=== PATIENT | male | born 1940 | race African-American/Black ===

== ENCOUNTER 2016-07-23 10:12 | Inpatient (IN) | payer OTHER ==
--- NOTE | 2016-07-23 11:41 | Emergency Department Report ---
Entered by ANDER MCGRATH, acting as scribe for MARY DE LEON NP. Chief Complaint: Weakness Stated Complaint: CONGESTION/NOT EATING Time Seen by Provider: 07/23/16 11:32 - HPI History of Present Illness: 76 year old male who is non-toxic, non ill appearing, in no acute distress presents from doctor's office with c/o sore throat x 4 days, described as too painful to eat or drink. Niece with \pt reports no PO food x 4 days. Denies N/V , chest pain, SOB, dizziness, syncope. - ROS Review of Systems: Reports sore throat, difficulty swallowing, no PO food. Denies N/V, chest pain, SOB, dizziness, syncope. - Exam Vital Signs: Vital Signs 07/23/16 11:12 Temperature 97.7 F Pulse Rate 104 H Respiratory 20 Rate Blood Pressure 185/120 O2 Sat by Pulse 98 Oximetry Physical Exam: Constitutional: Non toxic, NAD. ENT: Posterior pharynx grossly normal with no erythema or swelling. Uvula midline. No tonsilar swelling, erythema, or exudate. Neck: Adenopathy. Respiratory: No respirator distress. Lung sounds clear to auscultation bilaterally. No stridor. . MSE screening note: Focused history and physical exam performed. Due to findings the following was ordered: CBC, CMP, BNP ED Disposition for MSE Condition: Stable This documentation as recorded by the scribe,ANDER MCGRATH,accurately reflects the service I personally performed and the decisions made by ,MARY DE LEON, ROBINA.
[2016-07-23 11:55] LABS: Basophils % (Auto) 0.3 % (0.0-1.8); Eosinophils % (Auto) 0.7 % (0.0-4.3); Hematocrit 38.2 % (35.5-45.6); Hemoglobin 12.4 gm/dl (11.8-15.2); Mean Corpuscular HGB Conc 33 % (32-34); Mean Corpuscular Hemoglobin 26 pg (28-32); Mean Corpuscular Volume 81 fl (84-94); Platelet Count 294 K/mm3 (140-440); Red Blood Count 4.74 M/mm3 (3.65-5.03); Red Cell Distribution Width 14.2 % (13.2-15.2); White Blood Count 13.4 K/mm3 (4.5-11.0)
[2016-07-23 12:20] LABS: Albumin 4.2 g/dL (3.9-5); Albumin/Globulin Ratio 1.1 %; BUN/Creatinine Ratio 17.5; Bilirubin,Total 0.3 mg/dL (0.1-1.2); Calcium 10.1 mg/dL (8.4-10.2); Chloride 92.4 mmol/L (98-107); Potassium 5.2 mmol/L (3.6-5.0); Total Protein 8.1 g/dL (6.3-8.2)
[2016-07-23] MEDS ORDERED: NORMODYNE IV ONE (12:56)
[2016-07-23] MEDS ORDERED: NACL 0.9% 1000 ML 1,000 ML IV ONE (12:56)
--- NOTE | 2016-07-23 13:43 | Emergency Department Report ---
ED General Adult HPI - General Chief complaint: Weakness Stated complaint: CONGESTION/NOT EATING Time Seen by Provider: 07/23/16 12:36 Source: patient, family Mode of arrival: Wheelchair Limitations: Language Barrier - History of Present Illness Initial comments: 76-year-old male with a past medical history of diabetes, hypertension, and renal insufficiency presents to the hospital complaints of inability to swallow food or liquids for the past 4 days. Symptoms have been progressive. 2 months ago patient began having difficulty swallowing solid food and he required him to chew his food completely and eat slowly. Now for last 4 days patient can't even swallow liquids. He has been able to tolerate his medication although it takes him a while to swallow it. No previous history of esophageal issues. Patient denies pain to throat or fevers. Patient sent by Dr. Fountain for evaluation - Related Data Home Medications Medication Instructions Recorded Confirmed Last Taken Losartan/Hydrochlorothiazide 1 each PO DAILY 07/23/16 07/23/16 Unknown [Losartan-Hctz 50-12.5 mg Tab] amLODIPine [Norvasc] 5 mg PO DAILY 07/23/16 07/23/16 Unknown metFORMIN [Glucophage] 500 mg PO BID 07/23/16 07/23/16 Unknown Allergies Allergy/AdvReac Type Severity Reaction Status Date / Time No Known Allergies Allergy Unverified 07/23/16 11:12 ED Review of Systems ROS: Stated complaint: CONGESTION/NOT EATING Other details as noted in HPI Comment: All other systems reviewed and negative Other: Constitutional: No fevers chills Eyes: No eye pain visual changes ENT: No ear pain or throat pain Neck: Denies pain Respiratory: Denies shortness of breath Cardiovascular: Denies chest pain GI: Denies abdominal pain, nausea, vomiting, diarrhea : Denies dysuria Musculoskeletal: Denies back pain Skin: Denies rash Neurologic: Denies headache Psychiatric: Denies suicidal ideation ED Past Medical Hx - Past Medical History Previous Medical History?: Yes Hx Hypertension: Yes Hx Diabetes: Yes - Surgical History Past Surgical History?: No - Social History Smoking Status: Never Smoker Substance Use Type: Prescribed - Medications Home Medications: Home Medications Medication Instructions Recorded Confirmed Last Taken Type Losartan/Hydrochlorothiazide 1 each PO DAILY 07/23/16 07/23/16 Unknown History [Losartan-Hctz 50-12.5 mg Tab] amLODIPine [Norvasc] 5 mg PO DAILY 07/23/16 07/23/16 Unknown History metFORMIN [Glucophage] 500 mg PO BID 07/23/16 07/23/16 Unknown History ED Physical Exam - General Limitations: Language Barrier - Other Other exam information: General: No limitations, patient is alert in no acute distress Head exam: Atraumatic, normocephalic Eyes exam: Normal appearance, pupils equal reactive to light, extraocular movements intact ENT: Moist mucous membrane, normal oropharynx Neck exam: Normal inspection, full range of motion, no meningismus, questionable anterior thyroid mass. Fullness at the area of the thyroid without tenderness on palpation Respiratory exam: Clear to auscultation bilateral, no wheezes, rales, crackles Cardiovascular: Normal rate and rhythm, normal heart sounds Abdomen: Soft, nondistended, and nontender, with normal bowel sounds, no rebound, or guarding Extremity: Full range of motion normal inspection no deformity Back: Normal Inspection, full range of motion, no tenderness Neurologic: Alert, oriented x3, cranial nerves intact, no motor or sensory deficit Psychiatric: normal affect, normal mood Skin: Warm, dry, intact ED Course Vital Signs 07/23/16 11:12 Temperature 97.7 F Pulse Rate 104 H Respiratory 20 Rate Blood Pressure 185/120 O2 Sat by Pulse 98 Oximetry - Reevaluation(s) Reevaluation #1: 07/23/16 13:43 I gave patient some water to observe him swallowing it. Patient was able to swallow some of the water but it came up fairly quickly. Patient also not swallow his secretions and spitting instead. - Consultations Consultation #1: 07/23/16 14:[address] Neumann cash applications analyst physician with GI. Recommended nothing by mouth and will likely scope tomorrow 07/23/16 14:57 Dr. Neumann came to the ED to evaluate patient. He agrees that there may be a possible anterior neck mass and he will order a CT to evaluate ED Medical Decision Making - Lab Data Result diagrams: 07/23/16 11:40 07/23/16 11:40 Lab Results 07/23/16 07/23/16 07/23/16 Range/Units 11:06 11:40 11:40 WBC 13.4 H (4.5-11.0) K/mm3 RBC 4.74 (3.65-5.03) M/mm3 Hgb 12.4 (11.8-15.2) gm/dl Hct 38.2 (35.5-45.6) % MCV 81 L (84-94) fl MCH 26 L (28-32) pg MCHC 33 (32-34) % RDW 14.2 (13.2-15.2) % Plt Count 294 (140-440) K/mm3 Lymph % (Auto) 17.3 (13.4-35.0) % [place] % (Auto) 4.1 (0.0-7.3) % Eos % (Auto) 0.7 (0.0-4.3) % Baso % (Auto) 0.3 (0.0-1.8) % Lymph # 2.3 (1.2-5.4) K/mm3 [place] # 0.6 (0.0-0.8) K/mm3 Eos # 0.1 (0.0-0.4) K/mm3 Baso # 0.0 (0.0-0.1) K/mm3 Seg Neutrophils % 77.6 H (40.0-70.0) % Seg Neutrophils # 10.4 H (1.8-7.7) K/mm3 Sodium 134 L (137-145) mmol/L Potassium 5.2 H (3.6-5.0) mmol/L Chloride 92.4 L (98-107) mmol/L Carbon Dioxide 25 (22-30) mmol/L Anion Gap 22 mmol/L BUN 42 H (9-20) mg/dL Creatinine 2.4 H (0.8-1.5) mg/dL Estimated GFR 26 ml/min BUN/Creatinine Ratio 17.50 % Glucose 244 H (75-100) mg/dL POC Glucose 266 H (70-105) Calcium 10.1 (8.4-10.2) mg/dL Total Bilirubin 0.30 (0.1-1.2) mg/dL AST 40 (5-40) units/L ALT 42 (7-56) units/L Alkaline Phosphatase 155 H (35-129) units/L NT-Pro-B Natriuret Pep 315.8 (0-900) pg/mL Total Protein 8.1 (6.3-8.2) g/dL Albumin 4.2 (3.9-5) g/dL Albumin/Globulin Ratio 1.1 % - Radiology Data Radiology results: report reviewed (chest x-ray: Unremarkable) - Medical Decision Making Patient swelling and difficulty has been progressive for the last 2 months. Initially began with difficulty swallowing solids now patient cannot tolerate even liquid intake. Positive associated dehydration and renal sufficiency insufficiency. Family states history of renal insufficiency however, baseline creatinine is unknown. Labetalol ordered for elevated pressure and IV fluids initiated for dehydration. GI has been consulted. Patient requires admission to the hospital. Regular insulin ordered for mild hyperglycemia - Differential Diagnosis achalasia, esophageal stricture, dysphagia Critical Care Time: No Critical care attestation.: If time is entered above; I have spent that time in minutes in the direct care of this critically ill patient, excluding procedure time. ED Disposition Clinical Impression: Difficulty swallowing liquids, Uncontrolled hypertension, Renal insufficiency, Dehydration, Diabetes, Hyperkalemia Disposition: OP ADMITTED IP TO THIS HOSP Is pt being admited?: Yes Condition: Stable Time of Disposition: 13:45 (Dr Fontana/hosp)
--- NOTE | 2016-07-23 13:57 | Admit Criteria Form ---
Admission Criteria Documentation: HEAD AND NECK DISEASE [facility] Clinical Indications for Admission to Inpatient Care ( Place 'X' for any and all applicable criteria): Hospital admission is needed for appropriate care of the patient because of ANY ONE of the following (1)(2): [ ]I. Severe sinusitis as indicated by ANY ONE of the following (6)(13)(21) [ ]a) Suspected WARP TIER infection [ ]b) Bacteremia [ ]c) Hemodynamic instability [ ]d) Outpatient and observation care antibiotic treatment have failed or are not considered appropriate [ ]e) Surgical drainage needed that cannot be performed on an outpatient basis or observation. setting [ ]f) Suspected orbital involvement [ ]II. Acute glaucoma unresponsive to emergency treatment that requires medication or other treatment beyond the scope of observation care (1) [ ]III. Severe eye infection or inflammation (eg, uveitis) which is unresponsive to emergency treatment and requires medication or other treatment beyond the scope of observation care (1)(2)(3)(4) [ ]IV. Severe epistaxis requiring posterior packing (5)(6) [ ]V. Acute bacterial labyrinthitis(6)(7) [ ]. Viral labyrinthitis with symptoms uncontrollable on an outpatient or observation care basis (6)(7) [ ]VII. Severe necrotizing external otitis unresponsive to outpatient and observation care treatment(6) [ ]VIII. Otitis media requiring treatment beyond the scope of outpatient and observation care, as indicated by presence or persistence of ANY ONE of the following(6)(8)(9): [ ]a) Hemodynamic instability [ ]b) Mastoiditis [ ]c) Suspected WARP TIER infection [ ]d) Bacteremia [ ]e) Surgical drainage needed that cannot be performed as an outpatient. or in an observation setting. [ ]IX. Epiglottitis or supraglottitis(6)(11)(12)(13)(14) [ ]X. Stridor or laryngospasm (unresponsive to emergency management) (6)(11)( 12)(13)(14) [ ]XI. Acute pharyngitis or tonsillitis and ANY ONE of the following (14)(15)( 16): [ ]a) Hemodynamic instability remaining after emergency or observation level care (as appropriate) [ ]b) Surgical drainage needed that cannot be performed in outpatient or observation setting [ ]c) Mediastinitis [ ]d) Thrombophlebitis of internal jugular vein (Lemierre syndrome) [ ]XII. Sialoadenitis and ANY ONE of the following (17) (18) [ ]a) Hemodynamic instability remaining after emergency or observation level care(as appropriate) [ ]b) Surgical drainage needed that cannot be performed in outpatient or observation setting [X]XIII. Airway blockage or inability to swallow (6)(12)(19)(20) [ ]XIV.Complicated infection indicated by ANY ONE of the following(6)(13)(21)(22 ): [ ]a) Abscess or swelling causing airway difficulty(12) [ ]b) Bacteremia [ ]c) Hemodynamic instability [ ]d) Suspected WARP TIER infection [ ]e) Outpatient and observation care antibiotic treatment have failed or are not considered appropriate [ ]f) Surgical drainage needed that cannot be performed on an outpatient basis or observation setting [ ]g) Other management need that cannot be performed in outpatient or observation setting: [ ]XV. Severe trauma requiring inpatient medical treatment of eye, head, pharynx, or airway (1)(23)(24)[phone]) [ ]XVI. Ischemic optic neuropathy(11) [ ]XVII.Head or Neck Disease condition and ANY ONE of the following: [ ]a) Symptom or finding for which emergency and observation care have failed or are not considered appropriate (Also use General Criteria: Observation Care as appropriate) [ ]b) Presence of ANY ONE of the following: [ ]i) A General Admission Criteria [ ]ii) A Pediatric General Admission Criteria The original [email or web address] content created by [facility] has been revised. The portions of the content which have been revised are identified through the use of italic text or in bold, and [facility] has neither reviewed nor approved the modified material. All other unmodified content is copyright [facility]. Please see references footnoted in the original [facility] edition 2016 Admission Criteria Met: Yes
--- NOTE | 2016-07-23 14:14 | XRay Report ---
AP CHEST: HISTORY: Difficulty swallowing AP view of the chest demonstrates a normal mediastinal and cardiac contour with clear lungs and normal bony and soft tissue structures. IMPRESSION: Unremarkable AP chest.
[2016-07-23] MEDS ORDERED: TYLENOL PO PRN (14:53)
[2016-07-23] MEDS ORDERED: DULCOLAX PR PRN (14:53)
[2016-07-23] MEDS ORDERED: ZOFRAN IV PRN (14:53)
[2016-07-23] MEDS ORDERED: DILAUDID IV PRN (14:53)
[2016-07-23] MEDS ORDERED: MILK OF MAGNESIA PO PRN (14:53)
[2016-07-23] MEDS ORDERED: NON-FORMULARY (Losartan/Hydrochlorothiazide [Losartan-Hctz 50-12.5 Mg Tab] 1 EACH) PO SCH (15:00)
--- NOTE | 2016-07-23 15:09 | Gastroenterology Consultation ---
History of Present Illness - Reason for Consult Consult date: 07/23/16 Dysphagia Requesting physician: DEVEN TAYLOR - History of Present Illness The patient is a 76 yo [place] male admitted with a progressive 3 month hx of dysphagia (hx through family who translate for the patient). He says for the last 4 days he is unable swallow more than a tiny sip of fluid. He has had no SOB or chest pain. He is not a former smoker. He has no hx of neck or chest surgery. He is unable to swallow pills and the family thinks he has lost over 20 pounds. He has no blood in the stools. Denies abdominal pain; family says prior kidney surgery, but there is an incision over the urinary bladder. Past History Past Medical History: other (HTN) Past Surgical History: Other (Unknown "kidney" (?Bladder) surgery) Social history: no significant social history, lives with family. denies: smoking Family history: no significant family history Medications and Allergies Allergies Allergy/AdvReac Type Severity Reaction Status Date / Time No Known Allergies Allergy Unverified 07/23/16 11:12 Home Medications Medication Instructions Recorded Confirmed Last Taken Type Losartan/Hydrochlorothiazide 1 each PO DAILY 07/23/16 07/23/16 Unknown History [Losartan-Hctz 50-12.5 mg Tab] amLODIPine [Norvasc] 5 mg PO DAILY 07/23/16 07/23/16 Unknown History metFORMIN [Glucophage] 500 mg PO BID 07/23/16 07/23/16 Unknown History Active Meds: Active Medications Acetaminophen (Tylenol) 650 mg PO Q4H PRN PRN Reason: Pain MILD(1-3)/Fever >100.5/RED Amlodipine Besylate (Norvasc) 5 mg PO DAILY ELEANOR Bisacodyl (Dulcolax) 10 mg [place] QDAY PRN PRN Reason: Constipation unrelieved by MOM Hydromorphone HCl (Dilaudid) 0.5 mg IV Q3H PRN PRN Reason: Pain , Severe (7-10) Sodium Chloride (Nacl 0.9% 1000 Ml) 1,000 mls @ 250 mls/hr IV ONCE ONE Stop: 07/23/16 16:55 Last Admin: 07/23/16 13:42 Dose: 250 mls/hr Dextrose/Sodium Chloride (D5ns) 1,000 mls @ 75 mls/hr IV DIRECT ELEANOR Pantoprazole Sodium 80 mg/ (Sodium Chloride) 100 mls @ 10 mls/hr IV Q10H ELEANOR PRN Reason: 8 MG/HR Magnesium Hydroxide (Milk Of Magnesia) 30 ml PO Q4H PRN PRN Reason: Constipation Miscellaneous Medication (Losartan/Hydrochlorothiazide [Losartan-Hctz 50-12.5 Mg Tab]) 1 each PO DAILY ELEANOR Ondansetron HCl (Zofran) 4 mg IV Q3H PRN PRN Reason: N/V unrelieved by Reglan Review of Systems - Review of Systems All systems: negative (as noted in the HPI) Exam - Constitutional Vital Signs: Temp Pulse Resp BP Pulse Ox 97.7 F 104 H 20 185/120 98 07/23/16 11:12 07/23/16 11:12 07/23/16 11:12 07/23/16 11:12 07/23/16 11:12 General appearance: no acute distress - EENT Eyes: PERRL, EOM intact ENT: hearing intact, clear oral mucosa, poor dentition, no thrush - Neck Neck: other (Large mass R neck extending to R carotid area. Firm and nontender. No fluctuance. Appears independent of the trachea.) - Respiratory Respiratory effort: normal Respiratory: bilateral: CTA - Cardiovascular Rhythm: regular Heart Sounds: Present: S1 & S2 Extremities: no ischemia, No edema - Gastrointestinal General gastrointestinal: Present: soft, non-tender, non-distended - Genitourinary Male Genitourinary: other (Small vertical scar over urinary bladder) - Integumentary Integumentary: Present: clear, warm, dry - Neurologic Neurological: other (Nonfocal but difficult to assess due to language barrier. No R facial droop.) - Labs CBC & Chem 7: 07/23/16 11:40 07/23/16 11:40 Assessment and Plan - Patient Problems (1) Palpable mass of neck Current Visit: Yes Status: Acute Plan to address problem: - Almost certainly a thyroid or thymic cancer. H/N cancer would also be possible. - No obvious compromise of the airway (no dysphonia, no wheezing) but suspect severe compression on the retrolaryngeal esophagus. - Patient able to control secretions and very small sips of liquid. - Will attempt biopsy of lesion today, and get a CT of the chest when renal function improved with hydration. - The patient will likely need an endoscopic or surgical placement of a PEG tube , but will wait on the scan to determine. (2) Malnutrition Current Visit: Yes Status: Acute Plan to address problem: - Consult nutrition services for possible PPN for 1-4 days while w/u of neck mass and possible PEG tube is determined.
[2016-07-23 17:21] LABS: INR 1.04 (0.87-1.13); Partial Thromboplastin Time 29.8 Sec. (24.2-36.6)
[2016-07-23] MEDS: PROTONIX 80 MG in NACL 0.9% 100 ML IV SCH (17:26)
[2016-07-23] MEDS: NORVASC PO SCH (18:00)
[2016-07-23] MEDS: HCTZ PO SCH (18:01)
[2016-07-23] MEDS: COZAAR PO SCH (18:01)
[2016-07-23] MEDS: D5NS 1,000 ML IV SCH (19:32)
[2016-07-23] MEDS: NOVOLOG SUB-Q SCH (22:16)
[2016-07-24 04:59] LABS: Basophils % (Auto) 0.3 % (0.0-1.8); Eosinophils % (Auto) 0.7 % (0.0-4.3); Hematocrit 33.7 % (35.5-45.6); Hemoglobin 11.1 gm/dl (11.8-15.2); Mean Corpuscular HGB Conc 33 % (32-34); Mean Corpuscular Hemoglobin 26 pg (28-32); Mean Corpuscular Volume 79 fl (84-94); Platelet Count 224 K/mm3 (140-440); Red Blood Count 4.24 M/mm3 (3.65-5.03); Red Cell Distribution Width 14.1 % (13.2-15.2)
[2016-07-24 05:09] LABS: BUN/Creatinine Ratio 14.34; Calcium 8.5 mg/dL (8.4-10.2); Magnesium 1.9 mg/dL (1.7-2.3); Phosphorous 3.6 mg/dL (2.5-4.5)
[2016-07-24 05:10] LABS: Chloride 97.1 mmol/L (98-107); Potassium 4.3 mmol/L (3.6-5.0)
[2016-07-24] MEDS: D5NS 1,000 ML IV SCH (06:31)
--- NOTE | 2016-07-24 08:02 | Event Note ---
Date: 07/23/16 See H/p in reports Dysphagia-possible Esophageal stricture HTN T2DM Acute renal failure Hyperkalemia-mild
[2016-07-24] MEDS: NOVOLOG SUB-Q SCH ×4 (08:22→23:14)
--- NOTE | 2016-07-24 08:50 | Consultation ---
History of Present Illness - Reason for Consult Consult date: 07/24/16 acute renal failure, hyperkalemia - History of Present Illness Patient is a 76-year-old [place] male with medical history significant for Type 2 DM, Hypertension, and renal insufficiency presents to the ER with one week h/o inability to swallow food or liquids. Patient is unable to speak at this time and history was obtained from his niece and previous documentation. Symptoms started about 2 months and progressive. Initially he had difficulty swallowing solid foods and for the past week he can't even swallow liquids. No prior similar history. Initial labs showed creatinine of 2.4 and potassium of 5.2. Baseline creatinine is unknown. Past History Past Medical History: diabetes, hypertension Past Surgical History: Other (Unknown "kidney" (?Bladder) surgery) Social history: no significant social history, lives with family. denies: smoking Family history: no significant family history Medications and Allergies Allergies Allergy/AdvReac Type Severity Reaction Status Date / Time No Known Allergies Allergy Unverified 07/23/16 11:12 Home Medications Medication Instructions Recorded Confirmed Last Taken Type Losartan/Hydrochlorothiazide 1 each PO DAILY 07/23/16 07/23/16 Unknown History [Losartan-Hctz 50-12.5 mg Tab] amLODIPine [Norvasc] 5 mg PO DAILY 07/23/16 07/23/16 Unknown History metFORMIN [Glucophage] 500 mg PO BID 07/23/16 07/23/16 Unknown History Active Meds: Active Medications Acetaminophen (Tylenol) 650 mg PO Q4H PRN PRN Reason: Pain MILD(1-3)/Fever >100.5/RED Amlodipine Besylate (Norvasc) 5 mg PO DAILY [facility] Last Admin: 07/23/16 18:00 Dose: 5 mg Bisacodyl (Dulcolax) 10 mg [place] QDAY PRN PRN Reason: Constipation unrelieved by MOM Hydrochlorothiazide (Hctz) 12.5 mg PO QDAY [facility] Last Admin: 07/23/16 18:01 Dose: 12.5 mg Hydromorphone HCl (Dilaudid) 0.5 mg IV Q3H PRN PRN Reason: Pain , Severe (7-10) Pantoprazole Sodium 80 mg/ (Sodium Chloride) 100 mls @ 10 mls/hr IV DIRECT [facility] PRN Reason: 8 MG/HR Last Admin: 07/23/16 17:26 Dose: 8 mg/hr, 10 mls/hr Sodium Chloride (Nacl 0.9% 1000 Ml) 1,000 mls @ 75 mls/hr IV DIRECT ELEANOR Insulin Aspart (Novolog) 0 units SUB-Q ACHS ELEANOR PRN Reason: Protocol Last Admin: 07/24/16 08:22 Dose: 3 units Losartan Potassium (Cozaar) 50 mg PO QDAY ELEANOR Last Admin: 07/23/16 18:01 Dose: 50 mg Magnesium Hydroxide (Milk Of Magnesia) 30 ml PO Q4H PRN PRN Reason: Constipation Ondansetron HCl (Zofran) 4 mg IV Q3H PRN PRN Reason: N/V unrelieved by Reglan Review of Systems ROS unobtainable: due to mental status Exam - Vital Signs Vital signs: Vital Signs Temp Pulse Resp BP Pulse Ox 97.7 F 104 H 20 185/120 98 07/23/16 11:12 07/23/16 11:12 07/23/16 11:12 07/23/16 11:12 07/23/16 11:12 - General Appearance General appearance: well-developed, appears stated age, other (somnolent) EENT: ATNC, PERRL, hearing intact Neck: Present: Other (anterior neck swelling, firm) Respiratory: Clear to Ascultation Heart: regular, S1S2, no murmurs Gastrointestinal: Present: normoactive bowel sounds, obese. Absent: tenderness , distended Integumentary: no rash Neurologic: other (patient is lethargic to follow any command) Musculoskeletal: Present: other (no edema) Results - Lab Results 07/26/16 05:06 07/26/16 05:06 Most recent lab results Calcium 8.5 mg/dL (8.4-10.2) D 07/24/16 04:22 Phosphorus 3.60 mg/dL (2.5-4.5) 07/24/16 04:22 Magnesium 1.90 mg/dL (1.7-2.3) 07/24/16 04:22 Assessment and Plan - Patient Problems (1) TONEY (acute kidney injury) Current Visit: Yes Status: Acute Plan to address problem: Acute Kidney Injury superimposed on CKD in the setting of volume depletion. Continue IV fluids and monitor renal function. Renal US. (2) Hyperkalemia Current Visit: Yes Status: Acute Plan to address problem: Hyperkalemia in the setting of TONEY. Improved. (3) Palpable mass of neck Current Visit: Yes Status: Acute (4) Uncontrolled hypertension Current Visit: Yes Status: Acute Plan to address problem: Monitor. Patient is unable to swallow any pills.
--- NOTE | 2016-07-24 08:51 | Progress Note ---
Assessment and Plan Assessment and plan: Dysphagia. He was evaluated by yesterday. Acute kidney injury. His creatinine is 2.3 today. Nephrology consulted. Hypertension. BP stable. Diabetes mellitus type 2. Fingerstick glucose before every meal and at bedtime. Neck mass, likely thyroid. Biopsy today Liver masses. Will consult Oncology Full CODE STATUS History Interval history: Difficulty swallowing Hospitalist Physical - Physical exam Narrative exam: Gen appearance: Not in acute distress, ill looking Neck: neck mass HEENT: Normocephalic, atraumatic Lungs : Clear to auscultation bilaterally,no crackles or wheeze Heart :S1-S2 regular, no murmurs, rubs or gallop Abdomen: soft, non tender, non-distended,normal bowel sounds Extremities:no edema no clubbing or cyanosis, Neuro: Awake, alert - Constitutional Vitals: Temp Pulse Resp BP Pulse Ox 98.2 F 95 H 18 192/91 97 07/24/16 00:10 07/24/16 00:10 07/24/16 00:10 07/24/16 00:10 07/24/16 00:10 Results - Labs CBC & Chem 7: 07/24/16 04:22 07/24/16 04:22 Labs: Laboratory Last Values WBC 9.0 K/mm3 (4.5-11.0) 07/24/16 04:22 RBC 4.24 M/mm3 (3.65-5.03) 07/24/16 04:22 Hgb 11.1 gm/dl (11.8-15.2) L 07/24/16 04:22 Hct 33.7 % (35.5-45.6) L 07/24/16 04:22 MCV 79 fl (84-94) L 07/24/16 04:22 MCH 26 pg (28-32) L 07/24/16 04:22 MCHC 33 % (32-34) 07/24/16 04:22 RDW 14.1 % (13.2-15.2) 07/24/16 04:22 Plt Count 224 K/mm3 (140-440) 07/24/16 04:22 Lymph % (Auto) 12.4 % (13.4-35.0) L 07/24/16 04:22 [place] % (Auto) 6.2 % (0.0-7.3) 07/24/16 04:22 Eos % (Auto) 0.7 % (0.0-4.3) 07/24/16 04:22 Baso % (Auto) 0.3 % (0.0-1.8) 07/24/16 04:22 Lymph # 1.1 K/mm3 (1.2-5.4) L 07/24/16 04:22 [place] # 0.6 K/mm3 (0.0-0.8) 07/24/16 04:22 Eos # 0.1 K/mm3 (0.0-0.4) 07/24/16 04:22 Baso # 0.0 K/mm3 (0.0-0.1) 07/24/16 04:22 Seg Neutrophils % 80.4 % (40.0-70.0) H 07/24/16 04:22 Seg Neutrophils # 7.3 K/mm3 (1.8-7.7) 07/24/16 04:22 PT 13.5 Sec. (12.2-14.9) 07/23/16 16:34 INR 1.04 (0.87-1.13) 07/23/16 16:34 APTT 29.8 Sec. (24.2-36.6) 07/23/16 16:34 Sodium 135 mmol/L (137-145) L 07/24/16 04:22 Potassium 4.3 mmol/L (3.6-5.0) 07/24/16 04:22 Chloride 97.1 mmol/L (98-107) L 07/24/16 04:22 Carbon Dioxide 22 mmol/L (22-30) 07/24/16 04:22 Anion Gap 20 mmol/L 07/24/16 04:22 BUN 33 mg/dL (9-20) H 07/24/16 04:22 Creatinine 2.3 mg/dL (0.8-1.5) H 07/24/16 04:22 Estimated GFR 28 ml/min 07/24/16 04:22 BUN/Creatinine Ratio 14.34 % 07/24/16 04:22 Glucose 186 mg/dL (75-100) H 07/24/16 04:22 POC Glucose 219 (70-105) H 07/24/16 06:10 Calcium 8.5 mg/dL (8.4-10.2) D 07/24/16 04:22 Phosphorus 3.60 mg/dL (2.5-4.5) 07/24/16 04:22 Magnesium 1.90 mg/dL (1.7-2.3) 07/24/16 04:22 Total Bilirubin 0.30 mg/dL (0.1-1.2) 07/23/16 11:40 AST 40 units/L (5-40) 07/23/16 11:40 ALT 42 units/L (7-56) 07/23/16 11:40 Alkaline Phosphatase 155 units/L (35-129) H 07/23/16 11:40 NT-Pro-B Natriuret Pep 315.8 pg/mL (0-900) 07/23/16 11:40 Total Protein 8.1 g/dL (6.3-8.2) 07/23/16 11:40 Albumin 4.2 g/dL (3.9-5) 07/23/16 11:40 Albumin/Globulin Ratio 1.1 % 07/23/16 11:40 TSH 1.200 mlU/mL (0.270-4.200) 07/24/16 04:22
[2016-07-24] MEDS: PROTONIX 80 MG in NACL 0.9% 100 ML IV SCH (09:07)
[2016-07-24] MEDS: NACL 0.9% 1000 ML 1,000 ML IV SCH (09:10)
--- NOTE | 2016-07-24 10:00 | History and Physical Report ---
CHIEF COMPLAINT: Difficulty swallowing food for the past 4 days. HISTORY OF PRESENT ILLNESS: This 76-year-old with past medical history of diabetes, hypertension, renal insufficiency who presents with difficulty swallowing food. The patient's symptoms have improved slowly with progressive feeds.. The patient has difficulty with swallowing foods and requires to chew his food completely and eats slowly. Over the past 4 days, he cannot even swallow liquids. Liquids are able to pass without any difficulty. PAST MEDICAL HISTORY: Significant for hypertension and diabetes. CURRENT MEDICATIONS: Losartan 50/12.5 once a day, amlodipine 5 mg once a day, metformin 500 twice a day. PAST SURGICAL HISTORY: None. SOCIAL HISTORY: He does not smoke. No alcohol, no recreational drugs. FAMILY HISTORY: Significant for hypertension. REVIEW OF SYSTEMS: CONSTITUTIONAL: No fever, no chills, no weight loss, no weight gain. HEENT: No sore throat, no postnasal drip. CARDIOVASCULAR AND RESPIRATORY: No shortness of breath, no chest pain, no palpitations. No cough. GASTROINTESTINAL: Difficulty swallowing present. No abdominal pain. No vomiting, no diarrhea. GENITOURINARY: No dysuria. MUSCULOSKELETAL: No joint pains, no back pain, no muscle pains. CENTRAL NERVOUS SYSTEM: No syncope, no seizures. SKIN: No rashes. PSYCHIATRIC: No suicidal ideation and depression, etc. HEMATOLOGIC AND LYMPHATIC: No easy bruising. A 14-point review of systems is done. PHYSICAL EXAMINATION: GENERAL: Elderly male lying in bed comfortably. VITAL SIGNS: Blood pressure is 185/120, temperature is 97.7, pulse is 104, respirations are 20. HEENT: Unremarkable. Pupils equal and reactive. NECK: Supple, no lymphadenopathy, no thyromegaly. LUNGS: Clear to auscultation and percussion. Good air entry. CARDIOVASCULAR: S1, S2 heard. No gallop, no murmur, no rub. Apical impulse in left fifth intercostal space and midclavicular line. ABDOMEN: Soft and benign. No hepatosplenomegaly. No guarding, no rigidity. Hernial orifices are normal. EXTREMITIES: Good pedal pulses. No pedal edema. CENTRAL NERVOUS SYSTEM: Alert and oriented x 4, nonfocal exam. LABORATORY DATA: BUN and creatinine 42 and 2.4, potassium is 5.2, sodium is 134. White count is 13.4, glucose is 266, 146, and 257. Alkaline phosphatase is 155. ASSESSMENT AND PLAN: 1. Severe dysphagia, the patient with possible esophageal stricture. We will put him on clear liquids for the time being. GI consulted. Dr. Neumann was consulted. IV Protonix is initiated. 2. Hypertension. Continue losartan. 3. Type 2 diabetes mellitus coverage for the time being. Metformin is the last pill may not be able to swallow it. 4. Renal insufficiency, can be secondary to dehydration. IV fluids for the time being and Nephrology consult requested. 5. Acute renal failure secondary to volume depletion. 6. Deep venous thrombosis prophylaxis, Lovenox 40 mg subcutaneous daily. JOB# [id number] MAKAYLA/STEPHANIE
[2016-07-24] MEDS: HCTZ PO SCH (10:17)
[2016-07-24] MEDS: COZAAR PO SCH (10:17)
[2016-07-24] MEDS: NORVASC PO SCH (10:17)
--- NOTE | 2016-07-24 11:12 | Cat Scan Report ---
CT chest without contrast: History: Neck mass; difficulty swallowing/breathing. Unenhanced images are obtained from the low neck into the upper abdomen. Coronal and sagittal 2-D reformatted images included. There is a large right neck mass containing a large chunky calcification. The mass appears to lie within the right thyroid lobe measuring approximately 4.6 cm. The trachea and esophagus are displaced to the left. The trachea is compressed by the mass. Possible compression of the esophagus cannot be evaluated without contrast. The left thyroid lobe appears grossly normal. There is a 13 mm right paratracheal lymph node and a few smaller shotty lymph nodes in the pretracheal region. There is coronary vascular calcification. The airway below the neck mass is patent and in normal position. The thoracic aorta is normal in size and contour. There appears to be linear areas of compressed lung in both lower lobes. There are small bilateral effusions slightly larger on the right than left. There are no pulmonary nodules in the pleural surfaces otherwise appear generally unremarkable. Sections carried into the upper abdomen demonstrate multiple hypodensities in the right lobe of the liver. The largest is noted centrally measure approximately 5.6 cm. There is mild inhomogeneity of a portion of the left lobe of the liver near the falciform ligament. No other significant findings. Impression: 1. Large right neck mass most consistent with a fibroid etiology. Compression of trachea and possible esophagus. 2. Mild mediastinal adenopathy. Bilateral pleural effusions 3. Multiple liver masses which are suspicious. Recommendation: Further evaluation of the neck mass, liver, abdomen.
--- NOTE | 2016-07-24 13:01 | Procedure Note ---
Date of procedure: 07/24/16 Pre-op diagnosis: rt thyroid mass Post-op diagnosis: same Procedure: bx Findings: solid tissue Anesthesia: local Surgeon: JANA REESE Estimated blood loss: none Pathology: list (thyroid) Specimen disposition: to lab Condition: stable Disposition: floor
--- NOTE | 2016-07-24 13:03 | Ultrasound Report ---
Ultrasound guided right thyroid biopsy: Large right thyroid mass. The skin was cleansed and 1% lidocaine used for local anesthesia. An ultrasound guided sampling was obtained initially with a 25-gauge aspiration followed by a Rotex biopsy. The attending pathologist indicated adequate sampling had been obtained. The patient was discharged to his room. No complication encountered.
--- NOTE | 2016-07-24 14:48 | Ultrasound Report ---
Renal ultrasound: Acute renal failure. Neither kidney is well visualized. The approximate length of the right kidney is 8.6 cm and the length of the left kidney is 8.8 cm. Both kidneys are markedly echogenic. There is a 6.5 mm cyst in the inferior pole of the left kidney and a 5 mm cyst in the superior right kidney. There is no hydronephrosis and no solid mass identified. Imaging of the urinary bladder demonstrates questionable mild irregularity of the posterior bladder wall. Impression: 1. Markedly echogenic kidneys consistent with medical renal disease. 2. Questionably abnormal bladder mucosa.
--- NOTE | 2016-07-24 15:58 | Gastroenterology Progress Note ---
Assessment and Plan - Patient Problems (1) Dehydration Current Visit: Yes Status: Acute (2) Diabetes Current Visit: Yes Status: Acute Qualifiers: Diabetes mellitus type: D Diabetes mellitus complication status: D Diabetes mellitus complication detail: D Diabetic retinopathy severity: D Proliferative retinopathy type: P Diabetes mellitus macular edema: D Diabetes mellitus shelter insulin use: D Laterality: L Chronic kidney disease stage: C (3) Difficulty swallowing liquids Current Visit: Yes Status: Acute Plan to address problem: Will need PEG, probably surgical PEG along with trach as the neck mass is deviating both the trachea and esophagus. Needs PPN and CT with contrast. May benefit from pulmonary opinion about the need for trach. 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 Await path from today's biopsy. (5) Renal insufficiency Current Visit: Yes Status: Acute Subjective Date of service: 07/24/16 Principal diagnosis: inability to swallow secondary to neck mass Interval history: The family speaks little Setswana but indicates that he is fairly comfortable Objective - Constitutional Vitals: Temp Pulse Resp BP Pulse Ox 99.7 F H 114 H 18 159/89 98 07/24/16 15:45 07/24/16 15:45 07/24/16 15:45 07/24/16 15:45 07/24/16 08:00 General appearance: no acute distress - EENT ENT: hearing intact - Neck Neck: other (large right sided mass, heating pad on biopsy site) - Respiratory Respiratory effort: normal Respiratory: bilateral: CTA - Cardiovascular Rhythm: regular - Gastrointestinal General gastrointestinal: Present: soft, non-tender, non-distended, normal bowel sounds Rectal Exam: deferred - Musculoskeletal Musculoskeletal: normal - Neurologic Neurological: other (unable to evaluate) - Labs CBC & Chem 7: 07/24/16 04:22 07/24/16 04:22 Labs: Laboratory Results - last 24 hr 07/23/16 07/23/16 07/23/16 16:34 17:39 21:36 WBC RBC Hgb Hct MCV MCH MCHC RDW Plt Count Lymph % (Auto) [place] % (Auto) Eos % (Auto) Baso % (Auto) Lymph # [place] # Eos # Baso # Seg Neutrophils % Seg Neutrophils # PT 13.5 INR 1.04 APTT 29.8 Sodium Potassium Chloride Carbon Dioxide Anion Gap BUN Creatinine Estimated GFR BUN/Creatinine Ratio Glucose POC Glucose 146 H 257 H Calcium Phosphorus Magnesium TSH 07/24/16 07/24/16 07/24/16 04:22 04:22 04:22 WBC 9.0 RBC 4.24 Hgb 11.1 L Hct 33.7 L MCV 79 L MCH 26 L MCHC 33 RDW 14.1 Plt Count 224 Lymph % (Auto) 12.4 L [place] % (Auto) 6.2 Eos % (Auto) 0.7 Baso % (Auto) 0.3 Lymph # 1.1 L [place] # 0.6 Eos # 0.1 Baso # 0.0 Seg Neutrophils % 80.4 H Seg Neutrophils # 7.3 PT INR APTT Sodium 135 L Potassium 4.3 Chloride 97.1 L Carbon Dioxide 22 Anion Gap 20 BUN 33 H Creatinine 2.3 H Estimated GFR 28 BUN/Creatinine Ratio 14.34 Glucose 186 H POC Glucose Calcium 8.5 D Phosphorus 3.60 Magnesium 1.90 TSH 1.200 07/24/16 06:10 WBC RBC Hgb Hct MCV MCH MCHC RDW Plt Count Lymph % (Auto) [place] % (Auto) Eos % (Auto) Baso % (Auto) Lymph # [place] # Eos # Baso # Seg Neutrophils % Seg Neutrophils # PT INR APTT Sodium Potassium Chloride Carbon Dioxide Anion Gap BUN Creatinine Estimated GFR BUN/Creatinine Ratio Glucose POC Glucose 219 H Calcium Phosphorus Magnesium TSH
[2016-07-24] MEDS: PROTONIX IV SCH (23:16)
[2016-07-25] MEDS: NACL 0.9% 1000 ML 1,000 ML IV SCH ×2 (01:30→16:17)
[2016-07-25 05:17] LABS: Bacteria,Urine 1+ /HPF (Negative); Bilirubin,Urine NEG (Negative); Blood,Urine SM (Negative); Ketones,Urine TR mg/dL (Negative); Leukocyte Esterase,Urine LG (Negative); Mucus,Urine FEW /HPF; Nitrite,Urine POS (Negative); Urobilinogen,Urine < 2.0 mg/dL (<2.0)
[2016-07-25 07:20] LABS: Hematocrit 32.3 % (35.5-45.6); Hemoglobin 10.5 gm/dl (11.8-15.2); Mean Corpuscular HGB Conc 32 % (32-34); Mean Corpuscular Volume 80 fl (84-94); Platelet Count 222 K/mm3 (140-440); Red Blood Count 4.04 M/mm3 (3.65-5.03); Red Cell Distribution Width 14.5 % (13.2-15.2); White Blood Count 12.5 K/mm3 (4.5-11.0)
[2016-07-25 07:22] LABS: Mean Corpuscular Hemoglobin 26 pg (28-32)
[2016-07-25 07:35] LABS: Calcium 8.5 mg/dL (8.4-10.2); Chloride 104.8 mmol/L (98-107); Magnesium 1.8 mg/dL (1.7-2.3); Phosphorous 3.9 mg/dL (2.5-4.5); Potassium 4.2 mmol/L (3.6-5.0)
[2016-07-25] MEDS: NOVOLOG SUB-Q SCH ×4 (08:56→22:45)
--- NOTE | 2016-07-25 09:04 | Progress Note ---
Assessment and Plan - Patient Problems (1) TONEY (acute kidney injury) Current Visit: Yes Status: Acute Plan to address problem: Acute Kidney Injury superimposed on CKD in the setting of volume depletion. Continue IV fluids and monitor renal function. Renal US results noted. Likely CKD stage 4. (2) Hyperkalemia Current Visit: Yes Status: Acute Plan to address problem: Hyperkalemia in the setting of TONEY. Improved. (3) Palpable mass of neck Current Visit: Yes Status: Acute Plan to address problem: S/p FNAC. Await results. (4) Uncontrolled hypertension Current Visit: Yes Status: Acute Plan to address problem: Started on Clonidine patch. Subjective Date of service: 07/25/16 Principal diagnosis: inability to swallow secondary to neck mass Interval history: No new symptoms. Objective - Vital Signs Vital signs: Vital Signs - 12hr 07/25/16 07/25/16 00:00 07:00 Temperature 98.7 F 101.4 F H Pulse Rate [ 114 H 137 H Right Radial] Respiratory 20 18 Rate Blood Pressure 173/87 195/103 [Left Arm] O2 Sat by Pulse 96 98 Oximetry - General Appearance General appearance: well-developed, appears stated age, other (no distress) EENT: ATNC Neck: other (firm mass over the anterior aspect of the neck) Respiratory: Present: Clear to Ascultation Cardiology: regular, S1S2, no murmurs Gastrointestinal: normoactive bowel sounds, no tenderness, no distended Integumentary: no rash Neurologic: other (arousable, limited exam) Musculoskeletal: other (no edema) - Lab 07/26/16 05:06 07/26/16 05:06 Most recent lab results Calcium 8.5 mg/dL (8.4-10.2) 07/25/16 06:15 Phosphorus 3.90 mg/dL (2.5-4.5) 07/25/16 06:15 Magnesium 1.80 mg/dL (1.7-2.3) 07/25/16 06:15 Urine Creatinine 78.2 mg/dL (0.1-20.0) H 07/25/16 02:37 Urine Sodium 115 mEq/L 07/25/16 02:37
[2016-07-25] MEDS ORDERED: TYLENOL PR PRN (09:42)
[2016-07-25] MEDS ORDERED: CATAPRES-TTS PATCH TD SCH (10:00)
[2016-07-25] MEDS: PROTONIX IV SCH ×2 (10:12→22:45)
--- NOTE | 2016-07-25 10:42 | Progress Note ---
Assessment and Plan Assessment and plan: Dysphagia. He was evaluated by GI Physician. Acute kidney injury. Worse today, creatinine 2.5. Nephrology following His creatinine is 2.3 today. Nephrology consulted. Hypertension. BP stable. Diabetes mellitus type 2. Fingerstick glucose before every meal and at bedtime. Neck mass, hyroid. Biopsy done yesterday. Preliminary results malignancy. Discussed with Oncologist. He is not a candidate for chemotherapy. We'll discuss options with him GI physician Liver masses, likely metastatic. Oncology following. Full CODE STATUS History Interval history: Difficulty swallowing, lethargic Hospitalist Physical - Physical exam Narrative exam: Gen appearance: Not in acute distress, ill looking Neck: large anterior neck mass HEENT: Normocephalic, atraumatic Lungs : Clear to auscultation bilaterally,no crackles or wheeze Heart :S1-S2 regular, no murmurs, rubs or gallop Abdomen: soft, non tender, non-distended,normal bowel sounds Extremities:no edema no clubbing or cyanosis, Neuro: lethargic, arouseable - Constitutional Vitals: Temp Pulse Resp BP Pulse Ox 101.4 F H 137 H 18 195/103 98 07/25/16 07:00 07/25/16 07:00 07/25/16 07:00 07/25/16 07:00 07/25/16 07:00 Results - Labs CBC & Chem 7: 07/25/16 06:15 07/25/16 06:15 Labs: Laboratory Last Values WBC 12.5 K/mm3 (4.5-11.0) H 07/25/16 06:15 RBC 4.04 M/mm3 (3.65-5.03) 07/25/16 06:15 Hgb 10.5 gm/dl (11.8-15.2) L 07/25/16 06:15 Hct 32.3 % (35.5-45.6) L 07/25/16 06:15 MCV 80 fl (84-94) L 07/25/16 06:15 MCH 26 pg (28-32) L 07/25/16 06:15 MCHC 32 % (32-34) 07/25/16 06:15 RDW 14.5 % (13.2-15.2) 07/25/16 06:15 Plt Count 222 K/mm3 (140-440) 07/25/16 06:15 Lymph % (Auto) 12.4 % (13.4-35.0) L 07/24/16 04:22 [place] % (Auto) 6.2 % (0.0-7.3) 07/24/16 04:22 Eos % (Auto) 0.7 % (0.0-4.3) 07/24/16 04:22 Baso % (Auto) 0.3 % (0.0-1.8) 07/24/16 04:22 Lymph # 1.1 K/mm3 (1.2-5.4) L 07/24/16 04:22 [place] # 0.6 K/mm3 (0.0-0.8) 07/24/16 04:22 Eos # 0.1 K/mm3 (0.0-0.4) 07/24/16 04:22 Baso # 0.0 K/mm3 (0.0-0.1) 07/24/16 04:22 Seg Neutrophils % 80.4 % (40.0-70.0) H 07/24/16 04:22 Seg Neutrophils # 7.3 K/mm3 (1.8-7.7) 07/24/16 04:22 PT 13.5 Sec. (12.2-14.9) 07/23/16 16:34 INR 1.04 (0.87-1.13) 07/23/16 16:34 APTT 29.8 Sec. (24.2-36.6) 07/23/16 16:34 Sodium 144 mmol/L (137-145) D 07/25/16 06:15 Potassium 4.2 mmol/L (3.6-5.0) 07/25/16 06:15 Chloride 104.8 mmol/L (98-107) 07/25/16 06:15 Carbon Dioxide 21 mmol/L (22-30) L 07/25/16 06:15 Anion Gap 22 mmol/L 07/25/16 06:15 BUN 30 mg/dL (9-20) H 07/25/16 06:15 Creatinine 2.5 mg/dL (0.8-1.5) H 07/25/16 06:15 Estimated GFR 25 ml/min 07/25/16 06:15 BUN/Creatinine Ratio 12.00 % 07/25/16 06:15 Glucose 153 mg/dL (75-100) H 07/25/16 06:15 POC Glucose 153 (70-105) H 07/25/16 06:11 Calcium 8.5 mg/dL (8.4-10.2) 07/25/16 06:15 Phosphorus 3.90 mg/dL (2.5-4.5) 07/25/16 06:15 Magnesium 1.80 mg/dL (1.7-2.3) 07/25/16 06:15 Total Bilirubin 0.30 mg/dL (0.1-1.2) 07/23/16 11:40 AST 40 units/L (5-40) 07/23/16 11:40 ALT 42 units/L (7-56) 07/23/16 11:40 Alkaline Phosphatase 155 units/L (35-129) H 07/23/16 11:40 NT-Pro-B Natriuret Pep 315.8 pg/mL (0-900) 07/23/16 11:40 Total Protein 8.1 g/dL (6.3-8.2) 07/23/16 11:40 Albumin 4.2 g/dL (3.9-5) 07/23/16 11:40 Albumin/Globulin Ratio 1.1 % 07/23/16 11:40 TSH 1.200 mlU/mL (0.270-4.200) 07/24/16 04:22 Urine Color Yellow (Yellow) 07/25/16 02:37 Urine Turbidity Cloudy (Clear) 07/25/16 02:37 Urine pH 6.0 (5.0-7.0) 07/25/16 02:37 Ur Specific [place] 1.012 (1.003-1.030) 07/25/16 02:37 Urine Protein 100 mg/dl mg/dL (Negative) 07/25/16 02:37 Urine Glucose (UA) Neg mg/dL (Negative) 07/25/16 02:37 Urine Ketones Tr mg/dL (Negative) 07/25/16 02:37 Urine Blood Sm (Negative) 07/25/16 02:37 Urine Nitrite Pos (Negative) 07/25/16 02:37 Urine Bilirubin Neg (Negative) 07/25/16 02:37 Urine Urobilinogen < 2.0 mg/dL (<2.0) 07/25/16 02:37 Ur Leukocyte Esterase Lg (Negative) 07/25/16 02:37 Urine WBC (Auto) 131.0 /HPF (0.0-6.0) H 07/25/16 02:37 Urine RBC (Auto) 5.0 /HPF (0.0-6.0) 07/25/16 02:37 U Epithel Cells (Auto) 2.0 /HPF (0-13.0) 07/25/16 02:37 Urine Bacteria (Auto) 1+ /HPF (Negative) 07/25/16 02:37 Urine WBC Clumps 2+ /HPF 07/25/16 02:37 Amorphous Crystals Few 07/25/16 02:37 Hyaline Casts 1 /LPF 07/25/16 02:37 Urine Mucus Few /HPF 07/25/16 02:37 Urine Creatinine 78.2 mg/dL (0.1-20.0) H 07/25/16 02:37 Urine Sodium 115 mEq/L 07/25/16 02:37
[2016-07-25] MEDS: HCTZ PO SCH (11:25)
[2016-07-25] MEDS: NORVASC PO SCH (11:25)
--- NOTE | 2016-07-25 13:18 | Hem/Onc Consultation ---
History of Present Illness - Reason for Consult Consult date: 07/25/16 - History of Present Illness Seen with daughter and 4 other family members. 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 He was evaluated in [facility] due to severe debility and large thyroid mass. At home he basically stopped walking for a while and stopped eating and he presented to ED. He does not respond much. Events noted. Past History Past Medical History: other (HTN large thyroid mass for months) Past Surgical History: Other (Unknown "kidney" (?Bladder) surgery) Social history: no significant social history, lives with family. denies: smoking Family history: no significant family history Medications and Allergies Allergies Allergy/AdvReac Type Severity Reaction Status Date / Time No Known Allergies Allergy Unverified 07/23/16 11:12 Home Medications Medication Instructions Recorded Confirmed Last Taken Type Losartan/Hydrochlorothiazide 1 each PO DAILY 07/23/16 07/23/16 Unknown History [Losartan-Hctz 50-12.5 mg Tab] amLODIPine [Norvasc] 5 mg PO DAILY 07/23/16 07/23/16 Unknown History metFORMIN [Glucophage] 500 mg PO BID 07/23/16 07/23/16 Unknown History Active Meds: Active Medications Acetaminophen (Tylenol) 650 mg PO Q4H PRN PRN Reason: Pain MILD(1-3)/Fever >100.5/RED Acetaminophen (Tylenol) 650 mg DC Q4H PRN PRN Reason: Pain, Mild (1-3) Last Admin: 07/25/16 10:08 Dose: 650 mg Amlodipine Besylate (Norvasc) 5 mg PO DAILY [facility] Last Admin: 07/25/16 11:25 Dose: Not Given Bisacodyl (Dulcolax) 10 mg DC QDAY PRN PRN Reason: Constipation unrelieved by MOM Clonidine HCl (Catapres-Tts Patch) 0.3 mg TD QWEEK [facility] Last Admin: 07/25/16 10:13 Dose: 0.3 mg Hydrochlorothiazide (Hctz) 12.5 mg PO QDAY [facility] Last Admin: 07/25/16 11:25 Dose: Not Given Hydromorphone HCl (Dilaudid) 0.5 mg IV Q3H PRN PRN Reason: Pain , Severe (7-10) Sodium Chloride (Nacl 0.9% 1000 Ml) 1,000 mls @ 75 mls/hr IV DIRECT [facility] Stop: 07/25/16 21:00 Last Admin: 07/25/16 01:30 Dose: 75 mls/hr Amino Acids/Electrolytes/Dextrose (Tpn Adult) 2,016 mls @ 84 mls/hr IV DAILY@ 1999 [facility] PRN Reason: Protocol Stop: 07/26/16 19:59 Insulin Aspart (Novolog) 0 units SUB-Q ACHS [facility] PRN Reason: Protocol Last Admin: 07/25/16 12:09 Dose: Not Given Magnesium Hydroxide (Milk Of Magnesia) 30 ml PO Q4H PRN PRN Reason: Constipation Ondansetron HCl (Zofran) 4 mg IV Q3H PRN PRN Reason: N/V unrelieved by Reglan Pantoprazole Sodium (Protonix) 40 mg IV BID [facility] Last Admin: 07/25/16 10:12 Dose: 40 mg Review of Systems All systems: negative (mass per family) Exam - Exam Narrative Exam: HE does not respond to questions - Constitutional Vitals: Last Vital Signs Temp 101.4 F H 07/25/16 07:00 Pulse 137 H 07/25/16 07:00 Resp 18 07/25/16 07:00 BP 195/103 07/25/16 07:00 Pulse Ox 98 07/25/16 07:00 General appearance: cachectic Performance status: 4-completely disabled - EENT Lymph node exam: negative cervical - Neck Neck: normal ROM, enlarged thyroid - Respiratory Respiratory effort: Positive: labored Respiratory: negative: CTA - Cardiovascular Rhythm: regular Heart Sounds: Present: S1 & S2 - Gastrointestinal General gastrointestinal: Present: soft, non-tender - Integumentary Integumentary: clear - Musculoskeletal Musculoskeletal: generalized weakness - Neurologic Neurologic: other (does not respons) - Psychiatric Psychiatric: other (does not respons) Results - Labs lab Results: Laboratory Results - last 24 hr 07/24/16 07/24/16 07/24/16 12:38 16:37 21:51 WBC RBC Hgb Hct MCV MCH MCHC RDW Plt Count Sodium Potassium Chloride Carbon Dioxide Anion Gap BUN Creatinine Estimated GFR BUN/Creatinine Ratio Glucose POC Glucose 129 H 203 H 125 H Calcium Phosphorus Magnesium Urine Color Urine Turbidity Urine pH Ur Specific [place] Urine Protein Urine Glucose (UA) Urine Ketones Urine Blood Urine Nitrite Urine Bilirubin Urine Urobilinogen Ur Leukocyte Esterase Urine WBC (Auto) Urine RBC (Auto) U Epithel Cells (Auto) Urine Bacteria (Auto) Urine WBC Clumps Amorphous Crystals Hyaline Casts Urine Mucus Urine Creatinine Urine Sodium 07/25/16 07/25/16 07/25/16 01:39 02:37 02:37 WBC RBC Hgb Hct MCV MCH MCHC RDW Plt Count Sodium Potassium Chloride Carbon Dioxide Anion Gap BUN Creatinine Estimated GFR BUN/Creatinine Ratio Glucose POC Glucose 150 H Calcium Phosphorus Magnesium Urine Color Yellow Urine Turbidity Cloudy Urine pH 6.0 Ur Specific [place] 1.012 Urine Protein 100 mg/dl Urine Glucose (UA) Neg Urine Ketones Tr Urine Blood Sm Urine Nitrite Pos Urine Bilirubin Neg Urine Urobilinogen < 2.0 Ur Leukocyte Esterase Lg Urine WBC (Auto) 131.0 H Urine RBC (Auto) 5.0 U Epithel Cells (Auto) 2.0 Urine Bacteria (Auto) 1+ Urine WBC Clumps 2+ Amorphous Crystals Few Hyaline Casts 1 Urine Mucus Few Urine Creatinine 78.2 H Urine Sodium 115 07/25/16 07/25/16 07/25/16 06:11 06:15 06:15 WBC 12.5 H RBC 4.04 Hgb 10.5 L Hct 32.3 L MCV 80 L MCH 26 L MCHC 32 RDW 14.5 Plt Count 222 Sodium 144 D Potassium 4.2 Chloride 104.8 Carbon Dioxide 21 L Anion Gap 22 BUN 30 H Creatinine 2.5 H Estimated GFR 25 BUN/Creatinine Ratio 12.00 Glucose 153 H POC Glucose 153 H Calcium 8.5 Phosphorus 3.90 Magnesium 1.80 Urine Color Urine Turbidity Urine pH Ur Specific [place] Urine Protein Urine Glucose (UA) Urine Ketones Urine Blood Urine Nitrite Urine Bilirubin Urine Urobilinogen Ur Leukocyte Esterase Urine WBC (Auto) Urine RBC (Auto) U Epithel Cells (Auto) Urine Bacteria (Auto) Urine WBC Clumps Amorphous Crystals Hyaline Casts Urine Mucus Urine Creatinine Urine Sodium 07/25/16 11:25 WBC RBC Hgb Hct MCV MCH MCHC RDW Plt Count Sodium Potassium Chloride Carbon Dioxide Anion Gap BUN Creatinine Estimated GFR BUN/Creatinine Ratio Glucose POC Glucose 180 H Calcium Phosphorus Magnesium Urine Color Urine Turbidity Urine pH Ur Specific [place] Urine Protein Urine Glucose (UA) Urine Ketones Urine Blood Urine Nitrite Urine Bilirubin Urine Urobilinogen Ur Leukocyte Esterase Urine WBC (Auto) Urine RBC (Auto) U Epithel Cells (Auto) Urine Bacteria (Auto) Urine WBC Clumps Amorphous Crystals Hyaline Casts Urine Mucus Urine Creatinine Urine Sodium - Imaging and cardiology CT scan - chest: report reviewed, image reviewed Venous US: image reviewed Biopsy: report reviewed, image reviewed Assessment and Plan - Patient Problems (1) Palpable mass of neck Current Visit: Yes Status: Acute Plan to address problem: Spoke to Dr Whiting in pathology. prelim pathology is malignant. This is clearly advanced with patient being unresponsive. Await final pathology report. D/w Dr ivan and family. Palliative care is reasonable.
[2016-07-25] MEDS ORDERED: LEVAQUIN 750MG/150ML 750 MG/150 ML BAG IV ONE (15:00)
[2016-07-25] MEDS: APRESOLINE IV PRN ×2 (17:08→22:59)
--- NOTE | 2016-07-25 17:39 | Event Note ---
Date: 07/25/16 Results of past 48 hours reviewed. The patient has metastatic thyroid cancer with liver mets. Probable impending compression of trachea and esophagus. If the family desires, I would recommend surgically placed PEG/Trach (but would also be reasonable to pursue comfort measures). Will sign off; please call with questions.
[2016-07-25] MEDS ORDERED: TPN ADULT 2,016 ML IV SCH (20:00)
[2016-07-26 05:45] LABS: Hematocrit 30.7 % (35.5-45.6); Hemoglobin 10.1 gm/dl (11.8-15.2); Mean Corpuscular HGB Conc 33 % (32-34); Mean Corpuscular Hemoglobin 26 pg (28-32); Mean Corpuscular Volume 80 fl (84-94); Platelet Count 215 K/mm3 (140-440); Red Blood Count 3.82 M/mm3 (3.65-5.03); Red Cell Distribution Width 14.3 % (13.2-15.2)
[2016-07-26 07:46] LABS: BUN/Creatinine Ratio 15.92; Calcium 8.8 mg/dL (8.4-10.2); Chloride 105.5 mmol/L (98-107); Magnesium 1.9 mg/dL (1.7-2.3); Phosphorous 3.3 mg/dL (2.5-4.5)
[2016-07-26] MEDS: NOVOLOG SUB-Q SCH ×4 (09:08→22:19)
[2016-07-26] MEDS: APRESOLINE IV PRN (09:14)
[2016-07-26] MEDS: PROTONIX IV SCH ×2 (09:14→22:15)
--- NOTE | 2016-07-26 11:00 | Progress Note ---
Assessment and Plan - Patient Problems (1) TONEY (acute kidney injury) Current Visit: Yes Status: Acute Plan to address problem: Acute Kidney Injury superimposed on CKD in the setting of volume depletion. Monitor renal function. On PPN / TPN. No improvement in the renal function so far. Likely CKD stage 4. (2) Hyperkalemia Current Visit: Yes Status: Acute Plan to address problem: Hyperkalemia in the setting of TONEY. Improved. (3) Palpable mass of neck Current Visit: Yes Status: Acute Plan to address problem: FNAC positive for malignant cells. Followed by Heme-Onc. (4) Uncontrolled hypertension Current Visit: Yes Status: Chronic Plan to address problem: On Clonidine patch. Increase the dose of Clonidine patch. Subjective Date of service: 07/26/16 Principal diagnosis: inability to swallow secondary to neck mass Interval history: No new symptoms. Objective - Vital Signs Vital signs: Vital Signs - 12hr 07/26/16 07/26/16 07/26/16 00:05 07:30 09:14 Temperature 98.7 F 97.7 F Pulse Rate 110 H Pulse Rate [ 116 H 110 H Right Radial] Respiratory 22 28 H Rate Blood Pressure 185/95 Blood Pressure 156/78 185/95 [Left Arm] O2 Sat by Pulse 98 100 Oximetry - General Appearance General appearance: well-developed, other (no distress) EENT: ATNC, PERRL Neck: other (anterior neck mass) Respiratory: Present: Clear to Ascultation Cardiology: regular, S1S2, no murmurs Gastrointestinal: normoactive bowel sounds, no tenderness, no distended Integumentary: no rash Neurologic: other (alert) Musculoskeletal: other (no edema) - Lab 07/26/16 05:06 07/26/16 05:06 Most recent lab results Calcium 8.8 mg/dL (8.4-10.2) 07/26/16 05:06 Phosphorus 3.30 mg/dL (2.5-4.5) 07/26/16 05:06 Magnesium 1.90 mg/dL (1.7-2.3) 07/26/16 05:06 Urine Creatinine 78.2 mg/dL (0.1-20.0) H 07/25/16 02:37 Urine Sodium 115 mEq/L 07/25/16 02:37
[2016-07-26] MEDS: NORVASC PO SCH (11:37)
[2016-07-26] MEDS: HCTZ PO SCH (11:37)
[2016-07-26] MEDS ORDERED: CATAPRES-TTS PATCH TD SCH (14:00)
--- NOTE | 2016-07-26 15:58 | Progress Note ---
Assessment and Plan Assessment and plan: Dysphagia. Due to thyroid mass/cancer pressing on Esophagus. He was evaluated by GI Physician. Acute kidney injury. Worsening. Creatinine 2.7 today. Nephrology following. Hypertension. BP uncontrolled. Clonidine patch. Diabetes mellitus type 2. Fingerstick glucose before every meal and at bedtime. Thyroid cancer with likely metastases to liver. Discussed with Oncologist. He is not a candidate for chemotherapy. Discussed with family about hospice. They will have family meeting to decide. Liver masses, likely metastatic. Oncology following. Full CODE STATUS History Interval history: Difficulty swallowing, lethargic Hospitalist Physical - Physical exam Narrative exam: Gen appearance: Not in acute distress, ill looking Neck: Large anterior neck mass HEENT: Normocephalic, Atraumatic Lungs : Clear to auscultation bilaterally,no crackles or wheeze Heart :S1-S2 regular, no murmurs, rubs or gallop Abdomen: soft, non tender, non-distended,normal bowel sounds Extremities:no edema no clubbing or cyanosis, Neuro: Lethargic, Arouseable - Constitutional Vitals: Temp Pulse Resp BP Pulse Ox 97.7 F 110 H 28 H 185/95 100 07/26/16 07:30 07/26/16 09:14 07/26/16 07:30 07/26/16 09:14 07/26/16 07:30 Results - Labs CBC & Chem 7: 07/26/16 05:06 07/27/16 06:54 Labs: Laboratory Last Values WBC 11.0 K/mm3 (4.5-11.0) 07/26/16 05:06 RBC 3.82 M/mm3 (3.65-5.03) 07/26/16 05:06 Hgb 10.1 gm/dl (11.8-15.2) L 07/26/16 05:06 Hct 30.7 % (35.5-45.6) L 07/26/16 05:06 MCV 80 fl (84-94) L 07/26/16 05:06 MCH 26 pg (28-32) L 07/26/16 05:06 MCHC 33 % (32-34) 07/26/16 05:06 RDW 14.3 % (13.2-15.2) 07/26/16 05:06 Plt Count 215 K/mm3 (140-440) 07/26/16 05:06 Lymph % (Auto) 12.4 % (13.4-35.0) L 07/24/16 04:22 [place] % (Auto) 6.2 % (0.0-7.3) 07/24/16 04:22 Eos % (Auto) 0.7 % (0.0-4.3) 07/24/16 04:22 Baso % (Auto) 0.3 % (0.0-1.8) 07/24/16 04:22 Lymph # 1.1 K/mm3 (1.2-5.4) L 07/24/16 04:22 [place] # 0.6 K/mm3 (0.0-0.8) 07/24/16 04:22 Eos # 0.1 K/mm3 (0.0-0.4) 07/24/16 04:22 Baso # 0.0 K/mm3 (0.0-0.1) 07/24/16 04:22 Seg Neutrophils % 80.4 % (40.0-70.0) H 07/24/16 04:22 Seg Neutrophils # 7.3 K/mm3 (1.8-7.7) 07/24/16 04:22 PT 13.5 Sec. (12.2-14.9) 07/23/16 16:34 INR 1.04 (0.87-1.13) 07/23/16 16:34 APTT 29.8 Sec. (24.2-36.6) 07/23/16 16:34 Sodium 144 mmol/L (137-145) 07/26/16 05:06 Potassium 4.0 mmol/L (3.6-5.0) 07/26/16 05:06 Chloride 105.5 mmol/L (98-107) 07/26/16 05:06 Carbon Dioxide 21 mmol/L (22-30) L 07/26/16 05:06 Anion Gap 22 mmol/L 07/26/16 05:06 BUN 43 mg/dL (9-20) H 07/26/16 05:06 Creatinine 2.7 mg/dL (0.8-1.5) H 07/26/16 05:06 Estimated GFR 23 ml/min 07/26/16 05:06 BUN/Creatinine Ratio 15.92 % 07/26/16 05:06 Glucose 223 mg/dL (75-100) H 07/26/16 05:06 POC Glucose 235 (70-105) H 07/26/16 06:24 Calcium 8.8 mg/dL (8.4-10.2) 07/26/16 05:06 Phosphorus 3.30 mg/dL (2.5-4.5) 07/26/16 05:06 Magnesium 1.90 mg/dL (1.7-2.3) 07/26/16 05:06 Total Bilirubin 0.30 mg/dL (0.1-1.2) 07/23/16 11:40 AST 40 units/L (5-40) 07/23/16 11:40 ALT 42 units/L (7-56) 07/23/16 11:40 Alkaline Phosphatase 155 units/L (35-129) H 07/23/16 11:40 NT-Pro-B Natriuret Pep 315.8 pg/mL (0-900) 07/23/16 11:40 Total Protein 8.1 g/dL (6.3-8.2) 07/23/16 11:40 Albumin 4.2 g/dL (3.9-5) 07/23/16 11:40 Albumin/Globulin Ratio 1.1 % 07/23/16 11:40 TSH 1.200 mlU/mL (0.270-4.200) 07/24/16 04:22 Urine Color Yellow (Yellow) 07/25/16 02:37 Urine Turbidity Cloudy (Clear) 07/25/16 02:37 Urine pH 6.0 (5.0-7.0) 07/25/16 02:37 Ur Specific [place] 1.012 (1.003-1.030) 07/25/16 02:37 Urine Protein 100 mg/dl mg/dL (Negative) 07/25/16 02:37 Urine Glucose (UA) Neg mg/dL (Negative) 07/25/16 02:37 Urine Ketones Tr mg/dL (Negative) 07/25/16 02:37 Urine Blood Sm (Negative) 07/25/16 02:37 Urine Nitrite Pos (Negative) 07/25/16 02:37 Urine Bilirubin Neg (Negative) 07/25/16 02:37 Urine Urobilinogen < 2.0 mg/dL (<2.0) 07/25/16 02:37 Ur Leukocyte Esterase Lg (Negative) 07/25/16 02:37 Urine WBC (Auto) 131.0 /HPF (0.0-6.0) H 07/25/16 02:37 Urine RBC (Auto) 5.0 /HPF (0.0-6.0) 07/25/16 02:37 U Epithel Cells (Auto) 2.0 /HPF (0-13.0) 07/25/16 02:37 Urine Bacteria (Auto) 1+ /HPF (Negative) 07/25/16 02:37 Urine WBC Clumps 2+ /HPF 07/25/16 02:37 Amorphous Crystals Few 07/25/16 02:37 Hyaline Casts 1 /LPF 07/25/16 02:37 Urine Mucus Few /HPF 07/25/16 02:37 Urine Creatinine 78.2 mg/dL (0.1-20.0) H 07/25/16 02:37 Urine Sodium 115 mEq/L 07/25/16 02:37
[2016-07-26] MEDS ORDERED: TPN ADULT 2,016 ML IV SCH (20:00)
[2016-07-27 08:14] LABS: BUN/Creatinine Ratio 17.58; Calcium 8.7 mg/dL (8.4-10.2); Chloride 100.1 mmol/L (98-107); Potassium 4.2 mmol/L (3.6-5.0)
--- NOTE | 2016-07-27 08:20 | Discharge Summary ---
Providers - Providers Date of Admission: 07/23/16 13:48 Date of discharge: 07/27/16 Attending physician: ABHINAV RIVERA 07/23/16 15:04 Consult to Dietitian/Nutrition [CONS] Routine Physician Instructions: Reason For Exam: Reason for Consult: Write/Manage TPN/PPN 07/24/16 08:03 Consult to Physician [CONS] Routine Consulting Provider: BALAJI RIVERA Reason For Exam: Acute on chronic renal failure Place consult to:: Notified:: Phone number called:: [phone] Was contact made?: Yes If yes, spoke with:: Time called:: 09:43 07/24/16 13:49 Consult to Physician [CONS] Routine Consulting Provider: YUE LAWSON Reason For Exam: Liver masses, neck mass biopsied Place consult to:: Notified:: Phone number called:: [phone] Was contact made?: Yes If yes, spoke with:: WESLEY Time called:: 16:16 Primary care physician: CROCODILE FARMER Hospitalization Condition: Fair Disposition: DC TO HOSPICE (HOME) - Discharge Diagnoses (1) Thyroid cancer Status: Acute (2) Diabetes mellitus type 2 in nonobese Status: Chronic (3) TONEY (acute kidney injury) Status: Acute (4) Dehydration Status: Acute (5) Hyperkalemia Status: Acute Core Measure Documentation - Palliative Care Palliative Care/ Comfort Measures: Not Applicable Exam - Constitutional Vitals: Temp Pulse Resp BP Pulse Ox 97.5 F L 87 20 138/74 100 07/27/16 00:02 07/27/16 00:02 07/27/16 00:02 07/27/16 00:02 07/27/16 00:02 Plan Activity: advance as tolerated Diet: other (npo) Additional Instructions: 1.Discharge to home hospice Follow up with: PRIMARY CAREMD [Primary Care Provider] - 7 Days
[2016-07-27 08:32] LABS: Phosphorous 4.5 mg/dL (2.5-4.5)
[2016-07-27] MEDS: NOVOLOG SUB-Q SCH ×2 (08:43→12:57)
[2016-07-27] MEDS: HCTZ PO SCH (10:16)
[2016-07-27] MEDS: NORVASC PO SCH (10:16)
[2016-07-27] MEDS: PROTONIX IV SCH (10:26)
[2016-07-27] MEDS ORDERED: LEVAQUIN 500MG/100ML 500 MG/100 ML BAG IV SCH (15:00)
[2016-07-27 16:50] VITALS: BP 166/89
== END 2016-07-27 18:46 | disposition hospice, home (50) | DRG 644 ==
LOC: ED 10:12 → 3A 13:48
PROVIDERS: ADMIT Internal Medicine; ATTEND Internal Medicine
PROC: 0GBH3ZX Excision of Right Thyroid Gland Lobe, Percutaneous Approach, Diagnostic (ICD-10-PCS; principal; 2016-07-24)
DX: C73 Malignant neoplasm of thyroid gland (principal); E46 Unspecified protein-calorie malnutrition; N17.9 Acute kidney failure, unspecified; I10 Essential (primary) hypertension; E11.9 Type 2 diabetes mellitus without complications; N28.9 Disorder of kidney and ureter, unspecified; R13.10 Dysphagia, unspecified; E86.0 Dehydration; E87.5 Hyperkalemia; Z68.22 Body mass index [BMI] 22.0-22.9, adult; K76.9 Liver disease, unspecified
CPT/HCPCS: 36415; 60100; 71010; 71250; 76770; 76942; 80048; 80053; 81001; 82570; 82962; 83735; 83880; 84100; 84300; 84443; 85025; 85027; 85610; 85730; 87040; 88172; 88173; 88305; 96361; 96374; 96375; C9113; J0360; J1815; J1956; J7030; J7042